=== PATIENT | female | born 1990 | race American Indian/Alaskan Native ===

== ENCOUNTER 2016-12-10 14:38 | Emergency (ER) | payer SELFPAY ==
[2016-12-10 15:24] LABS: Basophils % (Auto) 0.7 % (0.0-1.8); Eosinophils % (Auto) 1.9 % (0.0-4.3); Hematocrit 40.9 % (30.3-42.9); Hemoglobin 13.1 gm/dl (10.1-14.3); Mean Corpuscular HGB Conc 32 % (30-34); Mean Corpuscular Hemoglobin 28 pg (28-32); Mean Corpuscular Volume 87 fl (79-97); Platelet Count 231 K/mm3 (140-440); Red Blood Count 4.71 M/mm3 (3.65-5.03); Red Cell Distribution Width 15.5 % (13.2-15.2); White Blood Count 7.5 K/mm3 (4.5-11.0)
[2016-12-10 15:35] LABS: Bacteria,Urine 2+ /HPF (Negative); Bilirubin,Urine NEG (Negative); Blood,Urine NEG (Negative); Ketones,Urine 80 mg/dL (Negative); Leukocyte Esterase,Urine MOD (Negative); Mucus,Urine FEW /HPF; Nitrite,Urine NEG (Negative); Protein,Urine <15 mg/dL mg/dL (Negative); Urobilinogen,Urine < 2.0 mg/dL (<2.0)
[2016-12-10 15:44] LABS: Anion Gap 21 mmol/L; BUN/Creatinine Ratio 16.66; Blood Urea Nitrogen 10 mg/dL (7-17); Calcium 9.7 mg/dL (8.4-10.2); Carbon Dioxide 22 mmol/L (22-30); Chloride 95.1 mmol/L (98-107); Glucose 77 mg/dL (65-100); Potassium 3.9 mmol/L (3.6-5.0); Sodium 134 mmol/L (137-145)
--- NOTE | 2016-12-10 19:13 | Emergency Department Report ---
ED Chest Pain HPI - General Chief Complaint: Abdominal Pain Stated Complaint: CHEST/ABD PAIN Time Seen by Provider: 12/10/16 19:02 Source: patient Mode of arrival: Ambulatory Limitations: No Limitations - History of Present Illness Initial Comments: Patient complain of chest pain onset last week that comes on and off. She said it feels sharp last time it happened was yesterday but she is not having any pain today. She also complained that she had some pain to the center for abdomen last month that comes on and off and she says she had some issues with constipation and she takes laxative. The laxative that she took relieved her constipation. Denies any urinary hernia and reports urgency and frequency. Denies any vaginal bleeding or discharge. She is not experiencing any abdominal pain at present. Denies any back pain. She said her last bowel movement was yesterday and it was normal. Denies any fever or chills. Denies any nausea or vomiting. Denies any history of DVT or pulmonary embolism personally or in her family. She denies being on control, recent history or past history of cancer, denies any shortness of breath, denies any swelling in her legs, denies any long distance travel by airplane or car recently. Last menstrual period was 11/26/2016. Denies recent immobility status. Having any chest pain or abdominal pain at present is that she is here because she wants to get checked out. He said when she had pain she took [id number] pain medication which help. Patient with 3 of leaky mitral valve. She reports that she is does not have any symptoms. She does not follow up cardiologists. MD Complaint: chest pain (intermittent), other (no pain intermittently 1 month) Onset/Timin -: week(s) Onset: other (none) Pain Location: epigastric Pain Radiation: none Severity: mild Severity scale (0 -10): 0 Consistency: intermittent Improves With: medication-other Worsens With: nothing Context: other (none) re: nausea, vomting Other Symptoms: denies: cough, fever, syncope, rash, acid taste in mouth, leg swelling, palpitations, burping Treatments Prior to Arrival: none Aspirin use within the Past 7 Days: (0) No - Related Data On Oral Contraceptives: No Previous Rx's Medication Instructions Recorded Last Taken Type Nitrofurantoin Heard/M-Cryst 100 mg PO Q12HR #14 tab-cap 12/10/16 Unknown Rx [Macrobid CAP] Allergies Allergy/AdvReac Type Severity Reaction Status Date / Time No Known Allergies Allergy Unverified 12/10/16 14:42 Heart Score - HEART Score History: Slightly suspicious EKG: Normal Age: < 45 Risk factors: 1-2 risk factors Troponin: < normal limit HEART Score: 1 - Critical Actions Critical Actions: 0-3 pts:0.9-1.7%risk of adverse cardiac event.Candidate for discharge (h/o leaking valve) ED Review of Systems ROS: Stated complaint: CHEST/ABD PAIN Other details as noted in HPI Comment: All other systems reviewed and negative Constitutional: denies: chills, fever ENT: denies: congestion Respiratory: no symptoms reported Cardiovascular: chest pain (none today). denies: palpitations, dyspnea on exertion, edema, syncope, paroxysmal nocturnal dyspnea Gastrointestinal: denies: abdominal pain, nausea, vomiting, diarrhea, constipation, hematemesis, melena, hematochezia Genitourinary: urgency, frequency. denies: dysuria, hematuria, discharge, abnormal menses, dyspareunia Skin: denies: rash Neurological: denies: headache, weakness, numbness, paresthesias, confusion, abnormal gait, vertigo ED Past Medical Hx - Past Medical History Previous Medical History?: Yes Additional medical history: Heart murmur, leaking valve - Surgical History Past Surgical History?: No - Family History Family history: no significant - Social History Smoking Status: Never Smoker Substance Use Type: None Other Social History: single - Medications Home Medications: Home Medications Medication Instructions Recorded Confirmed Last Taken Type Nitrofurantoin Heard/M-Cryst 100 mg PO Q12HR #14 tab-cap 12/10/16 Unknown Rx [Macrobid CAP] ED Physical Exam - General Limitations: No Limitations General appearance: alert, in no apparent distress - Head Head exam: Present: atraumatic, normocephalic, normal inspection - Eye Eye exam: Present: normal appearance, PERRL, EOMI Pupils: Present: normal accommodation - ENT ENT exam: Present: normal exam, normal orophraynx, mucous membranes moist - Neck Neck exam: Present: normal inspection, full ROM. Absent: tenderness, lymphadenopathy - Respiratory Respiratory exam: Present: normal lung sounds bilaterally. Absent: respiratory distress, wheezes, rales, rhonchi, stridor, chest wall tenderness, accessory muscle use, decreased breath sounds, prolonged expiratory - Cardiovascular Cardiovascular Exam: Present: regular rate, normal rhythm, normal heart sounds. Absent: systolic murmur, diastolic murmur - GI/Abdominal GI/Abdominal exam: Present: soft, normal bowel sounds. Absent: distended, tenderness, guarding, rebound, rigid, mass, bruit - Extremities Exam Extremities exam: Present: normal inspection, full ROM, normal capillary refill. Absent: tenderness, pedal edema, joint swelling, calf tenderness - Back Exam Back exam: Present: normal inspection, full ROM. Absent: tenderness, CVA tenderness (R), CVA tenderness (L), muscle spasm, paraspinal tenderness, vertebral tenderness, rash noted - Neurological Exam Neurological exam: Present: alert, oriented X3, normal gait, reflexes normal. Absent: motor sensory deficit - Psychiatric Psychiatric exam: Present: normal affect, normal mood - Skin Skin exam: Present: warm, dry, intact, normal color. Absent: rash ED Course Vital Signs 12/10/16 14:42 Temperature 98.7 F Pulse Rate 88 Respiratory 16 Rate Blood Pressure 129/81 O2 Sat by Pulse 100 Oximetry Vital Signs 12/10/16 12/10/16 14:42 21:36 Temperature 98.7 F 98.6 F Pulse Rate 88 87 Respiratory 16 18 Rate Blood Pressure 129/81 Blood Pressure 138/89 [Right] O2 Sat by Pulse 100 99 Oximetry - Reevaluation(s) Reevaluation #1: 12/10/16 21:31 found to have bladder infection and dehydration with ketones of 80 and her urine positive bacteria and moderate leukocyte Estrace. Was given 1 L of normal saline in the emergency room and Rocephin 1 g IV without any adverse reaction. Patient experienced no chest pain or abdominal pain while in emergency room. ZULMA score - Zulma Score Age > 65: (0) No Aspirin use within the Past 7 Days: (0) No 3 or more CAD Risk Factors: (0) No 2 or more Angina events in past 24 hrs: (0) No Known CAD with more than 50% Stenosis: (0) No Elevated Cardiac Markers: (0) No ST Deviation Greater than 0.5mm: (0) No ZULMA Score: 0 ED Medical Decision Making - Lab Data Result diagrams: 12/10/16 15:05 12/10/16 15:05 Lab Results 12/10/16 12/10/16 12/10/16 Range/Units 15:05 15:05 15:05 WBC 7.5 (4.5-11.0) K/mm3 RBC 4.71 (3.65-5.03) M/mm3 Hgb 13.1 (10.1-14.3) gm/dl Hct 40.9 (30.3-42.9) % MCV 87 (79-97) fl MCH 28 (28-32) pg MCHC 32 (30-34) % RDW 15.5 H (13.2-15.2) % Plt Count 231 (140-440) K/mm3 Lymph % (Auto) 24.3 (13.4-35.0) % Heard % (Auto) 6.6 (0.0-7.3) % Eos % (Auto) 1.9 (0.0-4.3) % Baso % (Auto) 0.7 (0.0-1.8) % Lymph # 1.8 (1.2-5.4) K/mm3 Heard # 0.5 (0.0-0.8) K/mm3 Eos # 0.1 (0.0-0.4) K/mm3 Baso # 0.1 (0.0-0.1) K/mm3 Seg Neutrophils % 66.5 (40.0-70.0) % Seg Neutrophils # 5.0 (1.8-7.7) K/mm3 Sodium 134 L (137-145) mmol/L Potassium 3.9 (3.6-5.0) mmol/L Chloride 95.1 L (98-107) mmol/L Carbon Dioxide 22 (22-30) mmol/L Anion Gap 21 mmol/L BUN 10 (7-17) mg/dL Creatinine 0.6 L (0.7-1.2) mg/dL Estimated GFR > 60 ml/min BUN/Creatinine Ratio 16.66 % Glucose 77 (65-100) mg/dL Calcium 9.7 (8.4-10.2) mg/dL Troponin T < 0.010 (0.00-0.029) ng/mL HCG, Qual Negative (Negative) Urine Color (Yellow) Urine Turbidity (Clear) Urine pH (5.0-7.0) Ur Specific [place] (1.003-1.030) Urine Protein (Negative) mg/dL Urine Glucose (UA) (Negative) mg/dL Urine Ketones (Negative) mg/dL Urine Blood (Negative) Urine Nitrite (Negative) Urine Bilirubin (Negative) Urine Urobilinogen (<2.0) mg/dL Ur Leukocyte Esterase (Negative) Urine WBC (Auto) (0.0-6.0) /HPF Urine RBC (Auto) (0.0-6.0) /HPF U Epithel Cells (Auto) (0-13.0) /HPF Urine Bacteria (Auto) (Negative) /HPF Urine Mucus /HPF 12/10/16 12/10/16 Range/Units 15:11 17:35 WBC (4.5-11.0) K/mm3 RBC (3.65-5.03) M/mm3 Hgb (10.1-14.3) gm/dl Hct (30.3-42.9) % MCV (79-97) fl MCH (28-32) pg MCHC (30-34) % RDW (13.2-15.2) % Plt Count (140-440) K/mm3 Lymph % (Auto) (13.4-35.0) % Heard % (Auto) (0.0-7.3) % Eos % (Auto) (0.0-4.3) % Baso % (Auto) (0.0-1.8) % Lymph # (1.2-5.4) K/mm3 Heard # (0.0-0.8) K/mm3 Eos # (0.0-0.4) K/mm3 Baso # (0.0-0.1) K/mm3 Seg Neutrophils % (40.0-70.0) % Seg Neutrophils # (1.8-7.7) K/mm3 Sodium (137-145) mmol/L Potassium (3.6-5.0) mmol/L Chloride (98-107) mmol/L Carbon Dioxide (22-30) mmol/L Anion Gap mmol/L BUN (7-17) mg/dL Creatinine (0.7-1.2) mg/dL Estimated GFR ml/min BUN/Creatinine Ratio % Glucose (65-100) mg/dL Calcium (8.4-10.2) mg/dL Troponin T < 0.010 (0.00-0.029) ng/mL HCG, Qual (Negative) Urine Color Yellow (Yellow) Urine Turbidity Clear (Clear) Urine pH 7.0 (5.0-7.0) Ur Specific [place] 1.020 (1.003-1.030) Urine Protein <15 mg/dl (Negative) mg/dL Urine Glucose (UA) Neg (Negative) mg/dL Urine Ketones 80 (Negative) mg/dL Urine Blood Neg (Negative) Urine Nitrite Neg (Negative) Urine Bilirubin Neg (Negative) Urine Urobilinogen < 2.0 (<2.0) mg/dL Ur Leukocyte Esterase Mod (Negative) Urine WBC (Auto) 2.0 (0.0-6.0) /HPF Urine RBC (Auto) 1.0 (0.0-6.0) /HPF U Epithel Cells (Auto) 1.0 (0-13.0) /HPF Urine Bacteria (Auto) 2+ (Negative) /HPF Urine Mucus Few /HPF Urine culture pending - EKG Data -: EKG Interpreted by Me (read by attending physician in ED) EKG shows normal: sinus rhythm (sinus rhythm at 98) Rate: normal - EKG Data Interpretation: no acute changes - Medical Decision Making D course: Patient here complaining of intermittent chest pain and intermittent abdominal pain which she is not having today. She reports that she thought that her abdominal pain was from constipation which she took a laxative and that has resolved but she has urinary urgency and frequency. Patient is not a diabetic. She has a history of leaky mitral valve and not followed by kettle firer. Patient was not experiencing any shortness of breath. CBC normal , chemistry with slight decrease in sodium at 134 and chloride Otherwise normal. Urinalysis revealed ketones at 80, moderate amount of leukocyte Estrace and positive bacteria. This is negative. Culture sent and pending. EKG is stable. Patient given results of lab work and EKG. Diagnosis and treatment plan explained to patient and she was understanding. Patient was given normal saline 1 L in the emergency room which will resolve hyponatremia and Rocephin 1 g IV without any adverse reaction. Stable and had no chest pain , shortness of breath or abdominal pain in emergency room. Her abdominal exam was normal. Laboratory, diagnostics-C EKG section and laboratory section for results. Assessment/plan. Acute cystitis without hematuria Mild dehydration-ketones is in urine at 80 Hyponatremia-mild .patient given IV fluid normal saline 1 L so expect to be corrected Abdominal pain-episodic none today Chest pain-episodic, none today patient with normal EKG and cardiac enzymes or negative. Patient discharged home a prescription for Macrobid and to follow up with kettle firer regarding intermittent chest pain with history of leaky mitral valve and also a branch operations specialist with episodic abdominal pain. Critical care attestation.: If time is entered above; I have spent that time in minutes in the direct care of this critically ill patient, excluding procedure time. ED Disposition Clinical Impression: Acute cystitis without hematuria, Hyponatremia, H/O chest pain, Urine abnormality, Dehydration Disposition: - TO HOME OR SELFCARE Is pt being admited?: No Does the pt Need Aspirin: No Condition: Stable Instructions: Chest Pain (ED), Abdominal Pain (ED), Dehydration (ED), Hyponatremia (ED), Urinary Tract Infection in Women (ED) Additional Instructions: Follow-up with kettle firer and branch operations specialist as instructed Take antibiotic as prescribed for urinary tract infection If chest pain return please return to the emergency room JACKIE Increasing her fluid intake as you urine shows that you had dehydration today. Prescriptions: Nitrofurantoin Heard/M-Cryst [Macrobid CAP] 100 mg PO Q12HR #14 tab-cap Referrals: PRIMARY CAREMD [Primary Care Provider] - 2-3 Days FRANCISCO J OLGUIN MD [Staff Physician] - 2-3 Days [facility] [Provider Group] - 2-3 Days Forms: Work/School Release Form(ED)
[2016-12-10] MEDS ORDERED: ROCEPHIN/NS 1 GM/50 ML 1 GM/50 ML BAG IV ONE (19:14)
[2016-12-10] MEDS ORDERED: NACL 0.9% 1000 ML 1,000 ML IV ONE (19:14)
[2016-12-10 21:37] VITALS: BP 138/89
== END 2016-12-10 21:48 | disposition home or self-care (01) ==
LOC: ED 14:38
DX: N30.00 Acute cystitis without hematuria (principal); E87.1 Hypo-osmolality and hyponatremia; R07.9 Chest pain, unspecified
CPT/HCPCS: 36415; 80048; 81001; 84484; 84703; 85025; 87086; 93005; 93010; 96365; 99284; J0696; J7030

== ENCOUNTER 2017-08-20 12:10 | Emergency (ER) | payer SELFPAY ==
[2017-08-20 12:21] VITALS: BP 137/100
--- NOTE | 2017-08-20 15:09 | Emergency Department Report ---
ED General Adult HPI - General Chief complaint: Dizziness Stated complaint: DIZZINESS Time Seen by Provider: 08/20/17 14:53 Source: patient Mode of arrival: Ambulatory Limitations: No Limitations - History of Present Illness Initial comments: Patient complains of dizziness that started on Saturday. The patient states that she started her menstrual cycle on Saturday and took her Zoloft as normal and Flexeril because of her cramps. Patient states that Saturday she was severely dizzy symptoms begin to improve on Saturday. She presents to the emergency department for further evaluation. Patient denies headache, chest pain, abdominal pain, headache. - Related Data Previous Rx's Medication Instructions Recorded Last Taken Type Nitrofurantoin [place]/M-Cryst 100 mg PO Q12HR #14 tab-cap 12/10/16 Unknown Rx [Macrobid CAP] Allergies Allergy/AdvReac Type Severity Reaction Status Date / Time No Known Allergies Allergy Unverified 12/10/16 14:42 ED Review of Systems ROS: Stated complaint: DIZZINESS Other details as noted in HPI Constitutional: denies: chills, fever Eyes: denies: eye pain, eye discharge, vision change ENT: denies: ear pain, throat pain Respiratory: denies: cough, shortness of breath, wheezing Cardiovascular: denies: chest pain, palpitations Endocrine: no symptoms reported Gastrointestinal: denies: abdominal pain, nausea, diarrhea Genitourinary: denies: urgency, dysuria, discharge Musculoskeletal: denies: back pain, joint swelling, arthralgia Skin: denies: rash, lesions Neurological: denies: headache, weakness, paresthesias Psychiatric: denies: anxiety, depression Hematological/Lymphatic: denies: easy bleeding, easy bruising ED Past Medical Hx - Past Medical History Previous Medical History?: Yes Hx Psychiatric Treatment: Yes (ANXIETY) Additional medical history: Heart murmur, leaking valve, TMJ - Surgical History Past Surgical History?: No - Social History Smoking Status: Never Smoker Substance Use Type: Prescribed - Medications Home Medications: Home Medications Medication Instructions Recorded Confirmed Last Taken Type Nitrofurantoin [place]/M-Cryst 100 mg PO Q12HR #14 tab-cap 12/10/16 Unknown Rx [Macrobid CAP] ED Physical Exam - General Limitations: No Limitations General appearance: alert, in no apparent distress - Head Head exam: Present: atraumatic, normocephalic - Eye Eye exam: Present: normal appearance - ENT ENT exam: Present: mucous membranes moist - Neck Neck exam: Present: normal inspection - Respiratory Respiratory exam: Present: normal lung sounds bilaterally. Absent: respiratory distress - Cardiovascular Cardiovascular Exam: Present: regular rate, normal rhythm. Absent: systolic murmur, diastolic murmur, rubs, gallop - GI/Abdominal GI/Abdominal exam: Present: soft, normal bowel sounds - Extremities Exam Extremities exam: Present: normal inspection - Back Exam Back exam: Present: normal inspection - Neurological Exam Neurological exam: Present: alert, oriented X3, CN II-XII intact, normal gait, motor sensory deficit - Psychiatric Psychiatric exam: Present: normal affect, normal mood - Skin Skin exam: Present: warm, dry, intact, normal color. Absent: rash ED Course Vital Signs 08/20/17 12:15 Temperature 97.6 F Pulse Rate 99 H Respiratory 20 Rate Blood Pressure 137/100 O2 Sat by Pulse 100 Oximetry ED Medical Decision Making - Medical Decision Making This patient as she cannot take SSRI along with the Flexeril. Discussed with patient that this can cause dizziness and also increases her risk of serotonin syndrome Instructed patient not to take Flexeril with her [facility] Critical care attestation.: If time is entered above; I have spent that time in minutes in the direct care of this critically ill patient, excluding procedure time. ED Disposition Clinical Impression: Dizziness Disposition: DC-01 TO HOME OR SELFCARE Is pt being admited?: No Does the pt Need Aspirin: No Condition: Stable Instructions: Dizziness (ED) Additional Instructions: Return if Symptoms become worse Referrals: PRIMARY CARE, [Primary Care Provider] - 3-5 Days TONIA REYES MD [Staff Physician] - 3-5 Days Time of Disposition: 15:09
== END 2017-08-20 15:13 | disposition home or self-care (01) ==
LOC: ED 12:10
DX: R42 Dizziness and giddiness (principal); F41.9 Anxiety disorder, unspecified
CPT/HCPCS: 99282